=== PATIENT | male | born 1990 | race American Indian/Alaskan Native ===

== ENCOUNTER 2017-04-25 12:49 | Emergency (ER) | payer SELFPAY ==
[2017-04-25 13:00] VITALS: BP 138/94
[2017-04-25] MEDS ORDERED: ULTRAM PO ONE (15:05)
--- NOTE | 2017-04-25 15:15 | Emergency Department Report ---
Chief Complaint: Abdominal Pain Stated Complaint: RIGHT FLANK PAIN Time Seen by Provider: 04/25/17 14:40 - HPI History of Present Illness: Patient is a 26-year-old -[place] male who is presenting with right upper quadrant pain. Patient's pain has been present for approximately 3 days. Patient's pain has been constant 6 out of 10 in severity states pain is sharp patient denies any cough chest pain nausea vomiting diarrhea patient also has had no fever - Exam Vital Signs: Vital Signs 04/25/17 04/25/17 12:58 14:32 Temperature 99.2 F Pulse Rate 87 Respiratory 16 16 Rate Blood Pressure 138/94 O2 Sat by Pulse 100 100 Oximetry Physical Exam: Focused physical exam patient has right upper quadrant tenderness on palpation but otherwise no abdominal distention no rebound or guarding lungs are clear to auscultation MSE screening note: Focused history and physical exam performed. Due to findings the following was ordered: ED Disposition for MSE Condition: Stable Referrals: PRIMARY CARE, [Primary Care Provider] - 3-5 Days
[2017-04-25 15:22] LABS: Basophils % (Auto) 0.2 % (0.0-1.8); Eosinophils % (Auto) 1.1 % (0.0-4.3); Hematocrit 42.8 % (35.5-45.6); Hemoglobin 14.5 gm/dl (11.8-15.2); Mean Corpuscular HGB Conc 34 % (32-34); Mean Corpuscular Hemoglobin 29 pg (28-32); Mean Corpuscular Volume 86 fl (84-94); Platelet Count 187 K/mm3 (140-440); Red Blood Count 4.97 M/mm3 (3.65-5.03); White Blood Count 9.9 K/mm3 (4.5-11.0)
--- NOTE | 2017-04-25 15:23 | XRay Report ---
KUB: 04/25/17 15:05:00 CLINICAL: Abdominal pain. FINDINGS: Normal bowel gas pattern. No distended bowel and no air-fluid levels. No mass or suspicious calcifications. The bones and soft tissues are normal. IMPRESSION: Normal abdomen.
[2017-04-25 15:41] LABS: Alanine Aminotransferase 14 units/L (7-56); Albumin 4.6 g/dL (3.9-5); Albumin/Globulin Ratio 0.9 %; Alkaline Phosphatase 45 units/L (35-129); Anion Gap 16 mmol/L; BUN/Creatinine Ratio 8; Blood Urea Nitrogen 7 mg/dL (9-20); Calcium 9.2 mg/dL (8.4-10.2); Carbon Dioxide 26 mmol/L (22-30); Chloride 97.7 mmol/L (98-107); Glucose 79 mg/dL (75-100); Potassium 4.3 mmol/L (3.6-5.0); Sodium 135 mmol/L (137-145); Total Protein 9.5 g/dL (6.3-8.2)
[2017-04-25 15:43] LABS: Bilirubin,Urine NEG (Negative); Blood,Urine NEG (Negative); Ketones,Urine NEG (Negative); Leukocyte Esterase,Urine NEG (Negative); Mucus,Urine FEW /HPF; Nitrite,Urine NEG (Negative); Urobilinogen,Urine < 2.0 mg/dL (<2.0); WBC,Urine < 1.0 /HPF (0.0-6.0)
--- NOTE | 2017-04-25 16:33 | Ultrasound Report ---
FINAL REPORT EXAM: US ABDOMEN LIMITED HISTORY: RUQ pain TECHNIQUE: Ultrasound abdomen PRIORS: None. FINDINGS: No focal abnormalities identified in the visualized portion liver parenchyma. No evidence of cholelithiasis or gallbladder wall thickening. No pericholecystic fluid seen. The common bile duct is within normal limits measuring 0.4 centimeters Right kidney demonstrates no evidence of hydronephrosis. It measures 11.6 x 4.8 x 6.5 centimeters. Cortical thickness 1.2 centimeters IMPRESSION: Negative. No evidence of biliary obstruction or cholelithiasis
--- NOTE | 2017-04-25 18:28 | Emergency Department Report ---
ED Abdominal Pain HPI - General Chief Complaint: Abdominal Pain Stated Complaint: RIGHT FLANK PAIN Time Seen by Provider: 04/25/17 14:40 Source: patient Mode of arrival: Ambulatory Limitations: No Limitations - History of Present Illness Initial Comments: Patient is a 26-year-old -[place] male who is presenting with right upper quadrant pain. Patient's pain has been present for approximately 3 days. Patient's pain has been constant 6 out of 10 in severity states pain is sharp patient denies any cough chest pain nausea vomiting diarrhea patient also has had no fever MD Complaint: abdominal pain Onset/Timin -: days(s) Location: RUQ Radiation: none Migration to: no migration Severity: moderate Severity scale (0 -10): 9 Quality: cramping, sharp Consistency: intermittent Improves With: nothing Worsens With: nothing Associated Symptoms: nausea - Related Data Previous Rx's Medication Instructions Recorded Last Taken Type Famotidine [Pepcid] 20 mg PO BID #60 tablet 04/25/17 Unknown Rx Ibuprofen 800 mg PO TID PRN #30 tablet 04/25/17 Unknown Rx Allergies Allergy/AdvReac Type Severity Reaction Status Date / Time banana Allergy Anaphylaxis Verified 04/25/17 13:00 ED Review of Systems ROS: Stated complaint: RIGHT FLANK PAIN Other details as noted in HPI Constitutional: denies: chills, fever Eyes: denies: eye pain, eye discharge, vision change ENT: denies: ear pain, throat pain Respiratory: denies: cough, shortness of breath, wheezing Cardiovascular: denies: chest pain, palpitations Endocrine: no symptoms reported Gastrointestinal: abdominal pain, nausea. denies: vomiting, diarrhea, constipation, hematemesis, melena, hematochezia Genitourinary: denies: urgency, dysuria Musculoskeletal: denies: back pain, joint swelling, arthralgia Skin: denies: rash, lesions Neurological: denies: headache, weakness, paresthesias Psychiatric: denies: anxiety, depression Hematological/Lymphatic: denies: easy bleeding, easy bruising ED Past Medical Hx - Social History Smoking Status: Never Smoker - Medications Home Medications: Home Medications Medication Instructions Recorded Confirmed Last Taken Type Famotidine [Pepcid] 20 mg PO BID #60 tablet 04/25/17 Unknown Rx Ibuprofen 800 mg PO TID PRN #30 tablet 04/25/17 Unknown Rx ED Physical Exam - General Limitations: No Limitations General appearance: alert, in no apparent distress - Head Head exam: Present: atraumatic, normocephalic - Eye Eye exam: Present: normal appearance - ENT ENT exam: Present: mucous membranes moist - Neck Neck exam: Present: normal inspection, full ROM. Absent: lymphadenopathy, thyromegaly - Respiratory Respiratory exam: Present: normal lung sounds bilaterally. Absent: respiratory distress, wheezes, stridor - Cardiovascular Cardiovascular Exam: Present: regular rate, normal rhythm. Absent: systolic murmur, diastolic murmur, rubs, gallop - GI/Abdominal GI/Abdominal exam: Present: soft, tenderness (ruq ), normal bowel sounds. Absent: distended, guarding, rebound, organomegaly, mass, bruit - Expanded GI/Abdominal Exam Expanded GI/Abdominal exam: Present: Carlisle's sign. Absent: psoas sign, obturator sign, heel tap sign, Rovsing's sign, tenderness at Mcburney's Point, ascites - Rectal Rectal exam: Present: deferred - Extremities Exam Extremities exam: Present: normal inspection - Back Exam Back exam: Present: normal inspection. Absent: tenderness, CVA tenderness (R), CVA tenderness (L), muscle spasm, paraspinal tenderness, vertebral tenderness - Neurological Exam Neurological exam: Present: alert, oriented X3, CN II-XII intact, normal gait, reflexes normal - Psychiatric Psychiatric exam: Present: normal affect, normal mood - Skin Skin exam: Present: warm, dry, intact, normal color. Absent: rash ED Course Vital Signs 04/25/17 04/25/17 12:58 14:32 Temperature 99.2 F Pulse Rate 87 Respiratory 16 16 Rate Blood Pressure 138/94 O2 Sat by Pulse 100 100 Oximetry ED Medical Decision Making - Lab Data Result diagrams: 04/25/17 15:07 04/25/17 15:07 - Radiology Data Radiology results: report reviewed, image reviewed ct abd: no gallstones no renal stones no ostruction no acute findings - Medical Decision Making Patient is a 26-year-old -[place] male who is presenting with right upper quadrant pain. Patient's pain has been present for approximately 3 days. Patient's pain has been constant 6 out of 10 in severity states pain is sharp patient denies any cough chest pain nausea vomiting diarrhea patient also has had no fever: exam pt appears well nontoxic 2/10 pain ruq with deep inspiration no sob no dizziness no vomiting. all labs normal cmp, ua, cbc, CT: normal plan : ibuprofen , pepcid, follow up with pcp in 2-3 days pt verbalized agreement and understanding of same. pt for dc to self in stable condition at this time. Critical care attestation.: If time is entered above; I have spent that time in minutes in the direct care of this critically ill patient, excluding procedure time. ED Disposition Clinical Impression: RUQ abdominal pain Disposition: DC-01 TO HOME OR SELFCARE Is pt being admited?: No Does the pt Need Aspirin: No Condition: Good Instructions: Abdominal Pain (ED) Prescriptions: Famotidine [Pepcid] 20 mg PO BID #60 tablet Ibuprofen 800 mg PO TID PRN #30 tablet PRN Reason: Pain Referrals: PRIMARY CARE, [Primary Care Provider] - 3-5 Days Forms: Work/School Release Form(ED) Time of Disposition: 18:35
== END 2017-04-25 18:48 | disposition home or self-care (01) ==
LOC: ED 12:49
DX: R10.11 Right upper quadrant pain (principal); Z91.018 Allergy to other foods
CPT/HCPCS: 36415; 74000; 76705; 80053; 81001; 85025; 99284

== ENCOUNTER 2017-05-25 10:29 | Emergency (ER) | payer SELFPAY ==
[2017-05-25 12:35] LABS: Basophils % (Auto) 0.5 % (0.0-1.8); Eosinophils # (Auto) 0.5 K/mm3 (0.0-0.4); Eosinophils % (Auto) 6.3 % (0.0-4.3); Hematocrit 40.4 % (35.5-45.6); Hemoglobin 13.4 gm/dl (11.8-15.2); Lymphocytes # (Auto) 2.3 K/mm3 (1.2-5.4); Lymphocytes % (Auto) 28.8 % (13.4-35.0); Mean Corpuscular HGB Conc 33 % (32-34); Mean Corpuscular Hemoglobin 28 pg (28-32); Mean Corpuscular Volume 85 fl (84-94); Monocytes % (Auto) 12.4 % (0.0-7.3); Platelet Count 250 K/mm3 (140-440); Red Blood Count 4.74 M/mm3 (3.65-5.03); Red Cell Distribution Width 13.8 % (13.2-15.2)
[2017-05-25 12:38] LABS: Alanine Aminotransferase 13 units/L (7-56); BUN/Creatinine Ratio 13; Blood Urea Nitrogen 10 mg/dL (9-20); Calcium 9.2 mg/dL (8.4-10.2); Hemolysis Index 3
[2017-05-25 13:03] LABS: Bacteria,Urine 1+ /HPF (Negative); Bilirubin,Urine NEG (Negative); Blood,Urine MOD (Negative); Color,Urine Yellow (Yellow); Mucus,Urine 1+ /HPF; Nitrite,Urine NEG (Negative)
--- NOTE | 2017-05-25 14:54 | Emergency Department Report ---
ED Abdominal Pain HPI - General Chief Complaint: Abdominal Pain Stated Complaint: CONSTIPATION Source: patient Mode of arrival: Ambulatory Limitations: No Limitations - History of Present Illness Initial Comments: 26-year-old male past medical history asthma presents with complaint of a week and a half of slightly uncomfortable bowel movements. Patient reports that he is straining to move his bowels and that after moving his bowels he has slight blood on toilet paper. Complains of anal itching. Denies fever chills nausea or vomiting. Patient awake alert and oriented 3 fully lucid nontoxic appearing. Denies dysuria hematuria testicular pain or swelling. Denies any fevers or chills. Patient is eating and drinking without difficulty. States that despite taking [id number] Colace he is still having some rectal discomfort. States he sees blood on toilet paper after wiping. Denies significant amount of blood in toilet bowl after bowel movement. Last bowel movement last night. Patient states he is passing gas without difficulty. Patient practices receptive anal sex. Onset/Timin -: week(s) Severity scale (0 -10): 2 Quality: burning Consistency: intermittent Improves With: nothing Worsens With: nothing Associated Symptoms: denies other symptoms - Related Data Previous Rx's Medication Instructions Recorded Last Taken Type Famotidine [Pepcid] 20 mg PO BID #60 tablet 04/25/17 Unknown Rx Ibuprofen 800 mg PO TID PRN #30 tablet 04/25/17 Unknown Rx Acetaminophen [Acetaminophen TAB] 500 mg PO Q6HR PRN #30 tablet 05/25/17 Unknown Rx Phenyleph/Pramoxin/Glycr/W.pet 1 applic RC TID #1 cream..g. 05/25/17 Unknown Rx [Preparation H Cream] Psyllium Husk [Metamucil] 1 tsp PO QDAY PRN #1 powder 05/25/17 Unknown Rx Allergies Allergy/AdvReac Type Severity Reaction Status Date / Time banana Allergy Anaphylaxis Verified 04/25/17 13:00 onion Allergy Anaphylaxis Verified 05/25/17 11:10 ED Review of Systems ROS: Stated complaint: CONSTIPATION Other details as noted in HPI Constitutional: denies: chills, fever Eyes: denies: eye pain, eye discharge, vision change ENT: denies: ear pain, throat pain Respiratory: denies: cough, shortness of breath, wheezing Cardiovascular: denies: chest pain, palpitations Endocrine: no symptoms reported Gastrointestinal: other (bright red blood on toilet paper after bowel movement) . denies: abdominal pain, nausea, diarrhea Genitourinary: denies: urgency, dysuria Musculoskeletal: denies: back pain, joint swelling, arthralgia Skin: denies: rash, lesions Neurological: denies: headache, weakness, paresthesias Psychiatric: denies: anxiety, depression Hematological/Lymphatic: denies: easy bleeding, easy bruising ED Past Medical Hx - Past Medical History Previous Medical History?: No - Surgical History Past Surgical History?: Yes Additional Surgical History: tonsilectomy - Social History Smoking Status: Never Smoker Substance Use Type: None - Medications Home Medications: Home Medications Medication Instructions Recorded Confirmed Last Taken Type Famotidine [Pepcid] 20 mg PO BID #60 tablet 04/25/17 Unknown Rx Ibuprofen 800 mg PO TID PRN #30 tablet 04/25/17 Unknown Rx Acetaminophen [Acetaminophen TAB] 500 mg PO Q6HR PRN #30 tablet 05/25/17 Unknown Rx Phenyleph/Pramoxin/Glycr/W.pet 1 applic RC TID #1 cream..g. 05/25/17 Unknown Rx [Preparation H Cream] Psyllium Husk [Metamucil] 1 tsp PO QDAY PRN #1 powder 05/25/17 Unknown Rx ED Physical Exam - General Limitations: No Limitations General appearance: alert, in no apparent distress - Head Head exam: Present: atraumatic, normocephalic - Eye Eye exam: Present: normal appearance, PERRL, EOMI - ENT ENT exam: Present: mucous membranes moist - Neck Neck exam: Present: normal inspection - Respiratory Respiratory exam: Present: normal lung sounds bilaterally. Absent: respiratory distress - Cardiovascular Cardiovascular Exam: Present: regular rate, normal rhythm. Absent: systolic murmur, diastolic murmur, rubs, gallop - GI/Abdominal GI/Abdominal exam: Present: soft (abdomen soft nontender nondistended), normal bowel sounds - Rectal Rectal exam: Present: hemorrhoids (1 external approximately 1-2cm external hemorrhoid nonthrombosed. No blood on digital rectal exam no prostate tenderness on digital rectal exam) - exam: Present: normal inspection External exam: Present: normal external exam - Extremities Exam Extremities exam: Present: normal inspection - Back Exam Back exam: Present: normal inspection - Neurological Exam Neurological exam: Present: alert, oriented X3, CN II-XII intact, normal gait - Psychiatric Psychiatric exam: Present: normal affect, normal mood - Skin Skin exam: Present: warm, dry, intact, normal color. Absent: rash ED Course Vital Signs 05/25/17 11:10 Temperature 98.7 F Pulse Rate 87 Respiratory 20 Rate Blood Pressure 117/73 O2 Sat by Pulse 97 Oximetry ED Medical Decision Making - Lab Data Result diagrams: 05/25/17 12:10 05/25/17 12:10 - Medical Decision Making A/P: External hemorrhoids 1-Preparation H cream, Metamucil, sitz bath 2-I educated patient on symptoms of hemorrhoids 3-follow-up with primary care and GI 4- labs unremarkable. Patient is able to defecate, has been passing gas. No tenderness on abdominal exam. No overt clinical history or signs and symptoms of prostatitis Critical care attestation.: If time is entered above; I have spent that time in minutes in the direct care of this critically ill patient, excluding procedure time. ED Disposition Clinical Impression: Hemorrhoid Qualifiers: Hemorrhoid type: first degree Qualified Code(s): K64.0 - First degree hemorrhoids Disposition: DC-01 TO HOME OR SELFCARE Is pt being admited?: No Does the pt Need Aspirin: No Condition: Stable Instructions: Hemorrhoids (ED) Prescriptions: Acetaminophen [Acetaminophen TAB] 500 mg PO Q6HR PRN #30 tablet PRN Reason: Pain Phenyleph/Pramoxin/Glycr/W.pet [Preparation H Cream] 1 applic RC TID #1 cream..g. Psyllium Husk [Metamucil] 1 tsp PO QDAY PRN #1 powder PRN Reason: Constipation Referrals: [facility] [Outside] - 3-5 Days [facility] [Provider Group] - 3-5 Days Forms: Work/School Release Form(ED) Time of Disposition: 14:56
[2017-05-25 15:09] VITALS: BP 121/85
== END 2017-05-25 15:07 | disposition home or self-care (01) ==
LOC: ED 10:29
DX: K64.9 Unspecified hemorrhoids (principal); Z91.018 Allergy to other foods
CPT/HCPCS: 36415; 80053; 81001; 85025; 99283